=== PATIENT | female | born 1950 | race Caucasian/White ===

== ENCOUNTER 2018-01-06 20:23 | Emergency (ER) | payer MEDICARE | END 2018-01-06 20:54 | disposition home or self-care (01) | LOC: SCSER 20:23 | DX: M25.521 Pain in right elbow (principal); I48.91 Unspecified atrial fibrillation; Z79.899 Other long term (current) drug therapy | CPT/HCPCS: 99283 ==

== ENCOUNTER 2018-01-11 14:25 | Outpatient (CLI) | payer MEDICARE ==
--- NOTE | 2018-01-11 11:59 | MMO ---
BILATERAL SCREENING MAMMOGRAMS: Date: 01/11/18 Comparison made to prior exams from 2010 and 2014. This patient's mammogram was interpreted with the assistance of computer-aided detection. FINDINGS: Scattered fibroglandular densities. There are a few scattered benign-appearing calcifications. No mas s or distortion. No interval change identified. Recommend one year follow-up. IMPRESSION: BIRADS 2: Benign Finding(s) POS: MINNIE
--- NOTE | 2018-01-11 16:15 | BD ---
DEXA BONE MINERAL DENSITOMETRY STUDY: 01/11/2018 HISTORY: Postmenopausal. FINDINGS LUMBAR SPINE BMD (g/cm2) T-SCORE Z-SCORE L1 1.089 0.9 2.7 L2 1.105 0.7 2.7 L3 1.159 0.7 2.8 L4 1.343 2.6 5.8 L1-L4 1.183 1.2 3.3 LEFT FEMORAL NECK 0.712 -1.2 0.5 TOTAL FEMUR 1.003 0.5 2.0 IMPRESSION: 1. Mild osteopenia of the left femoral neck. 2. Normal bone mineralization of the lumbar spine. The 10 year major osteoporotic risk fracture is 8.8% with a 10 year hip fracture risk of 0.9%. POS: MINNIE
== END 2018-01-11 14:26 | disposition home or self-care (01) ==
LOC: BICMAMMO 14:25
PROVIDERS: ATTEND Family Medicine
DX: Z12.31 Encounter for screening mammogram for malignant neoplasm of breast (principal); Z13.820 Encounter for screening for osteoporosis; M85.852 Other specified disorders of bone density and structure, left thigh; Z78.0 Asymptomatic menopausal state
CPT/HCPCS: 77067; 77080